=== PATIENT | male | born 1980 | race American Indian/Alaskan Native ===

== ENCOUNTER 2022-03-04 11:47 | Emergency (ER) | payer SELFPAY ==
[2022-03-04 13:42] VITALS: BP 134/88
[2022-03-04] MEDS ORDERED: SODIUM CHLORIDE 0.9% 1000 ML 1,000 ML IV ONE (14:01)
--- NOTE | 2022-03-04 14:08 | Emergency Department Report ---
- General Chief complaint: Weakness Stated complaint: GENERAL WEAKNESS Source: patient Mode of arrival: Ambulatory Limitations: No Limitations - History of Present Illness Initial comments: 41-year-old male presents to the ED complaining of weakness x4 months. Patient states that weakness has increased to the point that he is unable to get out of bed. 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 Patient denies any chest pain abdominal pain nausea /vomiting fever or chills. Patient states that he noticed a difference in his hair texture. No acute distress noted. No ill appearance noted. MD Complaint: generalized weakness - Related Data Previous Rx's Medication Instructions Recorded Last Taken Type levoFLOXacin [Levaquin] 750 mg PO QDAY 7 Days #7 tablet 03/04/22 Unknown Rx ED Review of Systems ROS: Stated complaint: GENERAL WEAKNESS Other details as noted in HPI ED Past Medical Hx - Past Medical History Previous Medical History?: No - Medications Home Medications: Home Medications Medication Instructions Recorded Confirmed Last Taken Type levoFLOXacin [Levaquin] 750 mg PO QDAY 7 Days #7 tablet 03/04/22 Unknown Rx ED Physical Exam - General Limitations: No Limitations ED Course Vital Signs 03/04/22 13:40 Temperature 99.0 F Pulse Rate 112 H Respiratory 16 Rate Blood Pressure 134/88 O2 Sat by Pulse 94 Oximetry ED Medical Decision Making - Lab Data Result diagrams: 03/04/22 14:27 03/04/22 14:27 - Radiology Data [facility] [address] [place] [address] Cat Scan Report Signed Patient: KEY BLUNT MR#: [id number] 62 : 1980 Acct:[id number] Age/Sex: 41 / M ADM Date: 03/04/22 Loc: ED Attending Dr: Ordering Physician: LASHAWN SOLER Date of Service: 03/04/22 Procedure(s): CT abdomen pelvis wo/w con Accession Number(s): [id number] cc: LASHAWN SOLER CT ABDOMEN AND PELVIS WITHOUT AND WITH CONTRAST INDICATION / CLINICAL INFORMATION: Hematuria, weakness x4 months. 100 ML OMNI 300 . TECHNIQUE: Axial CT images were obtained through the abdomen and pelvis before and after IV contrast. All CT scans at this location are performed using CT dose reduction for ALARA by means of automated exposure control. COMPARISON: None available. FINDINGS: LOWER CHEST: No significant abnormality. LIVER: No significant abnormality. GALLBLADDER: There is cholelithiasis without evidence of acute cholecystitis. BILE DUCTS: No significant abnormality. PANCREAS: No significant abnormality. SPLEEN: No significant abnormality. ADRENALS: No significant abnormality. RIGHT KIDNEY/URETER: No significant abnormality. LEFT KIDNEY/URETER: No significant abnormality. STOMACH/SMALL BOWEL: No significant abnormality. COLON: No significant abnormality. APPENDIX: Not seen. PERITONEUM: No free fluid. No free air. No fluid collection. LYMPH NODES: No significant adenopathy. VASCULATURE: No significant abnormality. URINARY BLADDER: No significant abnormality. REPRODUCTIVE ORGANS: No significant abnormality. ADDITIONAL FINDINGS: Multiple pelvic phleboliths are noted including some in close proximity to the distal third of the right ureter at the level of the right hip measuring up to 5.8 mm. BONES: No significant abnormality IMPRESSION: 1. No acute findings to explain the patient's complaints. 2. Additional findings as above. Signer Name: Maxime Dove MD Signed: 03/04/2022 6:20 PM Workstation Name: [id number] Transcribed By: MILTON Dictated By: Maxime Dove MD Electronically Authenticated By: Maxime Dove MD Signed Date/Time: 03/04/221819 DD/ 11 TD/TT: - Medical Decision Making 41-year-old male presents to the ED complaining of weakness x4 months. Patient states that weakness has increased to the point that he is unable to get out of bed. 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 Patient denies any chest pain abdominal pain nausea /vomiting fever or chills. Patient states that he noticed a difference in his hair texture. No acute distress noted. No ill appearance noted. Physical Examination unremarkable. Looks malnourished. States he has lost over 20 pounds in the last week. Patient refused HIV test. Patient labs unremarkable. Patient had a CT with and without contrast. No significant with diagnosi UA shows moderate blood we will treat patient for acute urinary tract infection. Patient is to follow-up with primary care doctor and have a full STD testing. Rechecked the patient is resting quietly quietly and comfortable and feeling better. I discussed the results of diagnostic study, my clinical impression and the plan for further treatment with the patient. Patient agrees with plan and discharge at this present time. All question addressed. I have given the patient instruction regarding a diagnosis ,expectation ,follow- up and return precaution. I explained to the patient that emergent condition may arise and to return to the ED for new worsen and any new persisting condition. I have explained the importance of following up with the primary care physician or referral physician listed below has instructed. The patient verbalized understanding of discharge instruction. Abnormal Lab Results 03/04/22 03/04/22 03/04/22 14:27 14:27 14:27 WBC 3.7 L RBC 3.52 L Hgb 9.7 L Hct 29.4 L MCV 84 MCH 28 MCHC 33 RDW 17.2 H Plt Count 201 Lymph % (Auto) 23.9 [place] % (Auto) 9.6 H Eos % (Auto) 6.4 H Baso % (Auto) 0.4 Lymph # (Auto) 0.9 L [place] # (Auto) 0.4 Eos # (Auto) 0.2 Baso # (Auto) 0.0 Seg Neutrophils % 59.7 Seg Neutrophils # 2.2 PT 13.1 INR 0.90 Sodium 141 Potassium 3.7 Chloride 105.2 Carbon Dioxide 22 Anion Gap 18 BUN 11 Creatinine 0.7 L Estimated GFR > 60 BUN/Creatinine Ratio 16 Glucose 88 Calcium 9.0 Total Bilirubin 0.40 AST 32 ALT 22 Alkaline Phosphatase 42 Lactate Dehydrogenase 325 H Total Creatine Kinase Troponin T Total Protein 10.1 H Albumin 3.8 L Albumin/Globulin Ratio 0.6 TSH Urine Color Urine Turbidity Urine pH Ur Specific [place] Urine Protein Urine Glucose (UA) Urine Ketones Urine Blood Urine Nitrite Urine Bilirubin Urine Urobilinogen Ur Leukocyte Esterase Urine WBC (Auto) Urine RBC (Auto) U Epithel Cells (Auto) Urine Mucus 03/04/22 03/04/22 03/04/22 14:27 14:27 Unknown WBC RBC Hgb Hct MCV MCH MCHC RDW Plt Count Lymph % (Auto) [place] % (Auto) Eos % (Auto) Baso % (Auto) Lymph # (Auto) [place] # (Auto) Eos # (Auto) Baso # (Auto) Seg Neutrophils % Seg Neutrophils # PT INR Sodium Potassium Chloride Carbon Dioxide Anion Gap BUN Creatinine Estimated GFR BUN/Creatinine Ratio Glucose Calcium Total Bilirubin AST ALT Alkaline Phosphatase Lactate Dehydrogenase Total Creatine Kinase 156 Troponin T < 0.010 Total Protein Albumin Albumin/Globulin Ratio TSH 2.070 Urine Color Yellow Urine Turbidity Clear Urine pH 6.0 Ur Specific [place] 1.021 Urine Protein 30 mg/dl Urine Glucose (UA) Neg Urine Ketones Neg Urine Blood Mod Urine Nitrite Neg Urine Bilirubin Neg Urine Urobilinogen < 2.0 Ur Leukocyte Esterase Neg Urine WBC (Auto) 2.0 Urine RBC (Auto) 3.0 U Epithel Cells (Auto) < 1.0 Urine Mucus Few examination is unremarkable Critical care attestation.: If time is entered above; I have spent that time in minutes in the direct care of this critically ill patient, excluding procedure time. ED Disposition Clinical Impression: Acute urinary tract infection Disposition: HOME / SELF CARE / HOMELESS Is pt being admited?: No Does the pt Need Aspirin: No Condition: Stable Instructions: Urinary Tract Infection, Adult Additional Instructions: Take medication as prescribed Return to the ED for any worsening symptoms Prescriptions: levoFLOXacin [Levaquin] 750 mg PO QDAY 7 Days #7 tablet Referrals: PRIMARY CAREMD [Primary Care Provider] - 3-5 Days [facility] [Provider Group] - 3-5 Days Forms: Work/School Release Form(ED)
--- NOTE | 2022-03-04 14:39 | XRay Report ---
CHEST 2 VIEWS INDICATION: Weakness. COMPARISON: None FINDINGS: SUPPORT DEVICES: None. HEART: Within normal limits. LUNGS/PLEURA: No acute air space or interstitial disease. No pneumothorax. ADDITIONAL FINDINGS: None. IMPRESSION: 1. No acute findings. Signer Name: Fredy Welch MD Signed: 03/04/2022 2:35 PM Workstation Name: [id number]
[2022-03-04 14:54] LABS: Basophils % (Auto) 0.4 % (0.0-1.8); Eosinophils # (Auto) 0.2 K/mm3 (0.0-0.4); Eosinophils % (Auto) 6.4 % (0.0-4.3); Hematocrit 29.4 % (35.5-45.6); Hemoglobin 9.7 gm/dl (11.8-15.2); Lymphocytes # (Auto) 0.9 K/mm3 (1.2-5.4); Lymphocytes % (Auto) 23.9 % (13.4-35.0); Mean Corpuscular HGB Conc 33 % (32-34); Mean Corpuscular Volume 84 fl (84-94); Monocytes # (Auto) 0.4 K/mm3 (0.0-0.8); Monocytes % (Auto) 9.6 % (0.0-7.3); Platelet Count 201 K/mm3 (140-440); Red Blood Count 3.52 M/mm3 (3.65-5.03); Red Cell Distribution Width 17.2 % (13.2-15.2)
[2022-03-04 15:01] LABS: INR 0.9 (0.87-1.13)
[2022-03-04 15:11] LABS: Alanine Aminotransferase 22 units/L (7-56); Albumin 3.8 g/dL (3.9-5); Blood Urea Nitrogen 11 mg/dL (9-20); Hemolysis Index 3
[2022-03-04 15:12] LABS: BUN/Creatinine Ratio 16
[2022-03-04] MEDS ORDERED: SODIUM CHLORIDE 0.9% 1000 ML 1,000 ML ONE (15:27)
[2022-03-04 15:45] LABS: Bilirubin,Urine NEG (Negative); Blood,Urine MOD (Negative); Color,Urine Yellow (Yellow); Mucus,Urine FEW /HPF; Urobilinogen,Urine < 2.0 mg/dL (<2.0)
--- NOTE | 2022-03-04 18:24 | Cat Scan Report ---
CT ABDOMEN AND PELVIS WITHOUT AND WITH CONTRAST INDICATION / CLINICAL INFORMATION: Hematuria, weakness x4 months. 100 ML OMNI 300 . TECHNIQUE: Axial CT images were obtained through the abdomen and pelvis before and after IV contrast. All CT sc ans at this location are performed using CT dose reduction for ALARA by means of automated exposure c ontrol. COMPARISON: None available. FINDINGS: LOWER CHEST: No significant abnormality. LIVER: No significant abnormality. GALLBLADDER: There is cholelithiasis without evidence of acute cholecystitis. BILE DUCTS: No significant abnormality. PANCREAS: No significant abnormality. SPLEEN: No significant abnormality. ADRENALS: No significant abnormality. RIGHT KIDNEY/URETER: No significant abnormality. LEFT KIDNEY/URETER: No significant abnormality. STOMACH/SMALL BOWEL: No significant abnormality. COLON: No significant abnormality. APPENDIX: Not seen. PERITONEUM: No free fluid. No free air. No fluid collection. LYMPH NODES: No significant adenopathy. VASCULATURE: No significant abnormality. URINARY BLADDER: No significant abnormality. REPRODUCTIVE ORGANS: No significant abnormality. ADDITIONAL FINDINGS: Multiple pelvic phleboliths are noted including some in close proximity to the d istal third of the right ureter at the level of the right hip measuring up to 5.8 mm. BONES: No significant abnormality IMPRESSION: 1. No acute findings to explain the patient's complaints. 2. Additional findings as above. Signer Name: Maxime Dove MD Signed: 03/04/2022 6:20 PM Workstation Name: [id number]
--- NOTE | 2022-03-06 10:16 | Electrocardiograph Report ---
[facility] Test Date: 2022-03-04 Test Time: 14:06:24 Pat Name: KEY BLUNT Department: Room: Gender: M Stapler Machine: SAMMI : 1980 Requested By: MALAIKA LOPEZ Order Number: [id number] Reading MD: Sundeep Benitez Measurements Intervals [place] Rate: 98 P: 59 WI: 159 QRS: 27 QRSD: 74 T: 41 QT: 350 QTc: 449 Interpretive Statements Sinus rhythm No previous ECG available for comparison Electronically Signed On 03-06-2022 10:16:27 EDT by Sundeep Benitez
== END 2022-03-04 18:49 | disposition home or self-care (01) ==
LOC: ED 11:47
DX: N39.0 Urinary tract infection, site not specified (principal)
CPT/HCPCS: 36415; 71046; 74178; 80053; 81001; 82550; 83615; 84443; 84484; 85025; 85610; 93005; 99284; J7030; Q9967; Q0162